=== PATIENT | male | born 1975 | race Caucasian/White ===

== ENCOUNTER 2020-08-25 15:37 | Outpatient (CLI) | payer BC | END 2020-08-25 15:43 | disposition home or self-care (01) | LOC: RAD 15:37 | PROVIDERS: ATTEND General Practice | DX: J12.82 Pneumonia due to coronavirus disease 2019 (principal); Z20.822 Contact with and (suspected) exposure to COVID-19 ==

== ENCOUNTER → 2020-08-26 | Outpatient (CLI) | payer BC | END | disposition home or self-care (01) | LOC: RAD 14:52 → TOM 15:15 | DX: J12.82 Pneumonia due to coronavirus disease 2019 (principal) ==